=== PATIENT | male | born 1935 | race Caucasian/White ===

== ENCOUNTER 2017-02-23 05:59 | Day surgery (SDC) | payer MEDICARE, OTHER ==
[~2017-02-23] VITALS: Ht 165.1 cm; Wt 73.6 kg
[2017-02-23] VITALS (8 sets, daily range): BP systolic 118–158; BP diastolic 60–94; PULSE 46–57; RESP 16–18; TEMP 97.9–98; O2SAT 92–97
[~2017-02-23 05:59] MED LIST: ASPI81 PO; BENA25TA8 PO; BUME1TAB PO; CHOL50006 PO; EZET10 PO; LEVO.025 PO; METO50TA11 PO; SITA100 PO; VITA10004 PO
[2017-02-23] MEDS ORDERED: ATEN25TA PO (06:58)
[2017-02-23] MEDS ORDERED: SITA1TAB2 PO (06:58)
[2017-02-23] MEDS ORDERED: LEVOTAB PO (06:58)
[2017-02-23] MEDS ORDERED: ASPI-110 PO (06:58)
[2017-02-23] MEDS ORDERED: UMEC1AER INH (06:58)
[2017-02-23] MEDS ORDERED: MONT10TA4 PO (06:58)
[2017-02-23] MEDS ORDERED: LEVO25TA4 PO (06:58)
[2017-02-23] MEDS ORDERED: ZETI10TA5 PO (06:58)
[2017-02-23] MEDS ORDERED: VITA500T49 PO (06:58)
[2017-02-23] MEDS ORDERED: SODIUM CHLOR 0.9% 1000 ML INJ 1,000 ML IV SCH (07:00)
[2017-02-23] MEDS ORDERED: LIDOCAINE 1%/EPINEPHrine 1:100,000 SOLN 20 ML VIAL ONE (07:41)
[2017-02-23] MEDS ORDERED: MIDAZOLAM HCL 5 MG/5 ML VIAL ONE (08:46)
[2017-02-23] MEDS ORDERED: fentaNYL CITRATE 250 MCG/5 ML AMP ONE (08:46)
--- NOTE | 2017-02-23 09:22 | PD.RAD ---
Post Procedure Progress Note Pre Procedure Diagnosis: (1) Mass of right lung Post Procedure Diagnosis: (1) Mass of right lung Procedure Date: Feb 23, 2017 Supervising Radiologist: Diego Benavides Anesthesia: Local, Conscious Sedation Plan of Activity Patient Condition: Good Additional Comments: Ct guide biopsy of the right lung completed. 2 20 gauge core samples taken Samples sent for pathology. Pt. tolerated the procedure well See PACS Report for procedural detail/treatment Diego Benavides MD Feb 23, 2017 09:22
[2017-02-23] MEDS ORDERED: oxyCODONE/ACETAMINOPHEN 5 MG/325 MG TAB PO PRN (09:30)
--- NOTE | 2017-02-23 09:46 | RADRPT ---
EXAM DATE/TIME: 02/23/2017 08:50 [facility] COMPARISON: No previous studies available for comparison. INDICATIONS : Right lung mass. SEDATION TIME: 30 minutes BIOPSY SITE: Right MEDICATION(S): 1.) 2 mg midazolam (Versed) IV 2.) 50 mcg fentanyl (Sublimaze) IV DEVICE(S): 1.) 20 gauge Temno core biopsy needle MEDICAL HISTORY : Hypertension. Diabetes mellitus type 2. SURGICAL HISTORY : Cholecystectomy Appendectomy. ENCOUNTER: Initial ACUITY: 1 day PAIN SCORE: 0/10 LOCATION: Right chest A total of two core specimen(s) were obtained and sent to the laboratory for pathologic evaluation. PROCEDURE: 1. CT guided lung biopsy. 2. Conscious sedation with continuous EKG and oximetry monitoring. 3. EKG and oximetry remained stable throughout the procedure. Prior to the procedure informed consent was obtained. Any appropriate prior imaging studies were rev iewed. Using automated exposure control and adjustment of the mA and/or kV according to patient size, radiation dose was kept as low as reasonably achievable to obtain optimal diagnostic quality images. DICOM format image data is available electronically for review and comparison. The site was prepped in a sterile fashion. Full sterile technique was used, including cap, mask, branden rile gloves and gown and a large sterile sheet. Hand hygiene and 2% chlorhexidine and/or betadine/al cohol prep was utilized per protocol for cutaneous antisepsis. The skin and subcutaneous tissues wer e infiltrated with local anesthetic solution. With CT guidance the previously identified target was localized. Biopsy was performed using the presc ribed needle as above. Adequate hemostasis was obtained with compression at the puncture site. Follow-up CT scan reveals no pneumothorax. Conscious sedation was performed with the prescribed dosages and duration as above in the presence of an independent trained radiology nurse to assist in the monitoring of the patient. EKG and oximetry remained stable throughout the procedure. The patient tolerated the procedure well and there were no complications. The patient was sent to Radiology Outpatient Unit in stable condition. CONCLUSION: Uncomplicated CT guided of the right lung. 2 core biopsies were obtained. There was n o pneumothorax on the followup CT examination. Diego Benavides MD on February 23, 2017 at 9:44 Board Certified Radiologist. This report was verified electronically.
--- NOTE | 2017-02-23 12:57 | RADRPT ---
EXAM DATE/TIME: 02/23/2017 10:52 [facility] COMPARISON: CHEST SINGLE AP, May 23, 2010, 10:54. INDICATIONS : Post right side lung biopsy. MEDICAL HISTORY : Hypertension. Diabetes mellitus type 2. SURGICAL HISTORY : Appendectomy. Cholecystectomy. ENCOUNTER: Subsequent ACUITY: 1 day PAIN SCORE: 0/10 LOCATION: Right upper chest FINDINGS: Extensive COPD is present. The left lung is clear, however there are parenchymal changes in right upp er lung, right lower lung not present previously and pneumonia and inflammatory process is not exclud ed. There are atherosclerotic calcifications of the aorta due to chronic atherosclerotic disease. Sli ght cardiomegaly is seen. CONCLUSION: Parenchymal changes right upper lobe and right lower lobe not present previously may be inflammatory and follow up is suggested. Tanya Acevedo MD on February 23, 2017 at 12:54 Board Certified Radiologist. This report was verified electronically.
== END 2017-02-23 13:30 | disposition home or self-care (01) ==
LOC: HRAD 05:59 → HRIP 06:03 → HRAD 13:30
DX: R91.1 Solitary pulmonary nodule (principal); J44.9 Chronic obstructive pulmonary disease, unspecified; I10 Essential (primary) hypertension; E11.9 Type 2 diabetes mellitus without complications; I70.0 Atherosclerosis of aorta; Z87.891 Personal history of nicotine dependence
CPT/HCPCS: 32405; 71010; 77012; 88305; 88312; J2250; J3010; J7030